=== PATIENT | female | born 2000 | race Caucasian/White ===

== ENCOUNTER → 2021-04-09 | Outpatient (CLI) | payer MEDICAID ==
--- NOTE | 2021-04-09 15:58 | Diagnostic Imaging Report ---
INDICATION: survey. TECHNIQUE: Multiple real-time grayscale images were obtained over the gravid uterus. COMPARISON: None. FINDINGS: There is a single live fetus in a cephalic presentation. heart rate was recorded 146 BPM. Placenta is posterior. No previa is identified. Amniotic fluid volume is normal. Cervical length is 3.3 cm. survey demonstrates bladder and stomach to be unremarkable. There is a four-chamber heart. There is a three-vessel cord with normal insertion. spine is unremarkable. There are suboptimal images of the brain and kidneys due to position. Biometrical measurements are as follows: Biparietal 4.49 cm, age 19 weeks 5 days. Head circumference 17.03 cm, age 19 weeks 5 days. Abdominal circumference 14.32 cm, age 19 weeks 5 days. Femur length 3.13 cm, age 19 weeks 6 days. Sonographic estimate age: 19 weeks 6 days. Sonographic estimated date of delivery: 08/28/2021. Estimated Weight: 307 gm (+/- 45 gm). LMP percentile: 35%. heart rate: 146 beats per minute. number: 1 of 1. IMPRESSION: Single live IUP of approximately 20 weeks gestational age. Estimated date of confinement sonographically is 08/28/2021. survey is unremarkable, although there was suboptimal imaging of the brain and facial anatomy as well as kidneys due to lie. Follow-up could be performed. Dictated by: Dictated on workstation # [id number]
== END ==
LOC: RAD 14:30
PROVIDERS: ATTEND Nurse Practitioner Women's Health
DX: Z34.02 Encounter for supervision of normal first pregnancy, second trimester (principal); Z3A.00 Weeks of gestation of pregnancy not specified
CPT/HCPCS: 76805

== ENCOUNTER → 2021-07-25 | Outpatient (CLI) | payer MEDICAID | LOC: LABNPT 13:30 | PROVIDERS: ATTEND Nurse Practitioner Women's Health | DX: Z34.03 Encounter for supervision of normal first pregnancy, third trimester (principal) | CPT/HCPCS: 87081 ==

== ENCOUNTER → 2021-07-31 | Outpatient (CLI) | payer MEDICAID ==
[2021-07-31 17:57] LABS: BASOPHILS % (AUTO) 0 % (0-10); EOSINOPHILS % (AUTO) 0 % (0-10); HEMATOCRIT 34 % (35-52); LYMPHOCYTES # (AUTO) 1.7 10^3/uL (1.0-4.0); LYMPHOCYTES % (AUTO) 20 % (12-44); MEAN CORPUSCULAR HEMOGLOBIN 28 pg (25-34); MEAN CORPUSCULAR HGB CONC 32 g/dL (32-36); MEAN CORPUSCULAR VOLUME 88 fL (80-99); MEAN PLATELET VOLUME 10.2 fL (9.0-12.2); MONOCYTES # (AUTO) 0.8 10^3/uL (0.0-1.0); MONOCYTES % (AUTO) 9 % (0-12); NEUTROPHILS % (AUTO) 70 % (42-75); PLATELET COUNT 234 10^3/uL (130-400); WHITE BLOOD COUNT 8.6 10^3/uL (4.3-11.0)
[2021-07-31 18:06] LABS: ALBUMIN 3.4 GM/DL (3.2-4.5)
[2021-07-31 18:07] LABS: CALCIUM 9.4 MG/DL (8.5-10.1)
[2021-07-31 18:08] LABS: TOTAL PROTEIN 6.4 GM/DL (6.4-8.2)
[2021-07-31 18:10] LABS: BILIRUBIN,TOTAL 0.2 MG/DL (0.1-1.0)
[2021-07-31 18:12] LABS: CREATININE SERUM 0.59 MG/DL (0.60-1.30)
== END ==
LOC: LABNPT 17:35
PROVIDERS: ATTEND Obstetrics & Gynecology
DX: O13.9 Gestational [pregnancy-induced] hypertension without significant proteinuria, unspecified trimester (principal); Z3A.00 Weeks of gestation of pregnancy not specified
CPT/HCPCS: 80053; 82570; 84156; 84550; 85025

== ENCOUNTER 2021-08-13 10:31 | Inpatient (IN) | payer MEDICAID ==
[2021-08-13] VITALS (41 sets, daily range): BP systolic 110–148; BP diastolic 59–91
[~2021-08-13] VITALS: Ht 152.4 cm; Wt 11.6 kg
[2021-08-13] MEDS ORDERED: MINERAL OIL 30 ML TOP PRN (11:15)
[2021-08-13] MEDS ORDERED: D5 LR IV SOLUTION 1,000 ML IV ONE (11:20)
[2021-08-13] MEDS: D5 LR IV SOLUTION 1,000 ML IV SCH ×2 (11:46→18:52)
[2021-08-13 12:07] LABS: BASOPHILS % (AUTO) 0 % (0-10); EOSINOPHILS % (AUTO) 0 % (0-10); HEMATOCRIT 33 % (35-52); HEMOGLOBIN 10.9 g/dL (11.5-16.0); LYMPHOCYTES # (AUTO) 1.6 10^3/uL (1.0-4.0); LYMPHOCYTES % (AUTO) 20 % (12-44); MEAN CORPUSCULAR HEMOGLOBIN 29 pg (25-34); MEAN CORPUSCULAR HGB CONC 33 g/dL (32-36); MEAN CORPUSCULAR VOLUME 86 fL (80-99); MONOCYTES % (AUTO) 6 % (0-12); NEUTROPHILS # (AUTO) 5.9 10^3/uL (1.8-7.8); NEUTROPHILS % (AUTO) 73 % (42-75); PLATELET COUNT 206 10^3/uL (130-400); WHITE BLOOD COUNT 8.1 10^3/uL (4.3-11.0)
[2021-08-13 12:08] LABS: MONOCYTES # (AUTO) 0.5 10^3/uL (0.0-1.0)
[2021-08-13 13:17] LABS: BILIRUBIN,URINE NEGATIVE (NEGATIVE); CLARITY,URINE SL CLOUDY; COLOR,URINE YELLOW; GLUCOSE, URINE (UA) NEGATIVE (NEGATIVE); KETONES,URINE NEGATIVE (NEGATIVE); LEUKOCYTE ESTERASE ,URINE NEGATIVE (NEGATIVE); NITRITE,URINE NEGATIVE (NEGATIVE); PH,URINE 6.5 (5-9); PROTEIN,URINE TRACE (NEGATIVE)
[2021-08-13 13:28] LABS: BACTERIA,URINE NEGATIVE /HPF; RBC,URINE >100 /HPF; SQUAMOUS EPITHELIAL CELL,UR RARE /HPF; WBC,URINE RARE /HPF
[2021-08-13] MEDS ORDERED: CATHETER FLUSH 10 ML SYR IV SCH (14:00)
[2021-08-13] MEDS ORDERED: OXYTOCIN PRE-MIX DRIP 500 ML IV ONE (15:54)
--- NOTE | 2021-08-13 15:57 | History & Physical-OB ---
OB - Chief Complaint & HPI Date/Time Date of Admission: Date of Admission: August 13, 2021 at 10:32 Date seen by a Provider: August 13, 2021 Time Seen by a Provider: 09:30 Chief Complaint/History OB-Reason for Admission/Chief: Onset of Labor Hx : 1 Hx Para: 0 Gestational Age in Weeks: 37 Gestational Age in Days: 6 Admission Nurse Assessment Rev: Yes Allergies and Home Medications Allergies Coded Allergies: No Known Drug Allergies (Unverified , 08/13/21) Patient Home Medication List Home Medication List Reviewed: Yes OB - History Hx of Present Care: Yes Ultrasounds: Normal mid trimester US Obstetrical Complications: None Medical Complications: None Patient Past Medical History NC Immunizations Influenza Vaccine Up-to-Date: No; Not Current OB - Admission Exam Physical Exam Vitals: Vital Signs 08/13/21 15:00 Temp 36.5 Pulse 88 Resp 18 B/P (MAP) 130/77 (94) Pulse Ox 98 O2 Delivery Room Air HEENT: NCAT Heart: Rhythm Normal Lungs: Clear Abdomen: Gravid Extremities: Normal Reflexes: Normal Cervical Dilatation: 2cm Effacement: 75% Station: -1 Membranes: Ruptured Amniotic Fluid: Other (bloody) Heart Rate: 130's Accelerations: Accelerations Present Decelerations: No Decelerations Short Term Variability: Present Retirement Variability: Average (6-25) Contractions on Admission: 6-10 Minutes Apart Intensity: Mild Labs Laboratory Tests Test 08/13/21 11:33 08/13/21 13:00 Range/Units White Blood Count 8.1 4.3-11.0 10^3/uL Red Blood Count 3.83 3.80-5.11 10^6/uL Hemoglobin 10.9 L 11.5-16.0 g/dL Hematocrit 33 L 35-52 % Mean Corpuscular Volume 86 80-99 fL Mean Corpuscular Hemoglobin 29 25-34 pg Mean Corpuscular Hemoglobin Concent 33 32-36 g/dL Red Cell Distribution Width 13.3 10.0-14.5 % Platelet Count 206 130-400 10^3/uL Mean Platelet Volume 11.0 9.0-12.2 fL Immature Granulocyte % (Auto) 1 % Neutrophils (%) (Auto) 73 42-75 % Lymphocytes (%) (Auto) 20 12-44 % Monocytes (%) (Auto) 6 0-12 % Eosinophils (%) (Auto) 0 0-10 % Basophils (%) (Auto) 0 0-10 % Neutrophils # (Auto) 5.9 1.8-7.8 10^3/uL Lymphocytes # (Auto) 1.6 1.0-4.0 10^3/uL Monocytes # (Auto) 0.5 0.0-1.0 10^3/uL Eosinophils # (Auto) 0.0 0.0-0.3 10^3/uL Basophils # (Auto) 0.0 0.0-0.1 10^3/uL Immature Granulocyte # (Auto) 0.1 0.0-0.1 10^3/uL Urine Color YELLOW Urine Clarity SL CLOUDY Urine pH 6.5 5-9 Urine Specific [place] 1.010 L 1.016-1.022 Urine Protein TRACE H NEGATIVE Urine Glucose (UA) NEGATIVE NEGATIVE Urine Ketones NEGATIVE NEGATIVE Urine Nitrite NEGATIVE NEGATIVE Urine Bilirubin NEGATIVE NEGATIVE Urine Urobilinogen 0.2 < = 1.0 MG/DL Urine Leukocyte Esterase NEGATIVE NEGATIVE Urine RBC (Auto) 3+ H NEGATIVE Urine RBC >100 H /HPF Urine WBC RARE /HPF Urine Squamous Epithelial Cells RARE /HPF Urine Crystals NONE /LPF Urine Bacteria NEGATIVE /HPF Urine Casts NONE /LPF Urine Mucus NEGATIVE /LPF Urine Culture Indicated NO OB - Assessment/Plan/Diagnosis Assessment Assessment: active labor, rupture of membranes Admission Dx 20 yo @ 37 weeks SROM- blood tinged GBS neg Admission Status: Inpatient Order (span 2 midnights) Reason for Inpatient Admission: SROM at 37 weeks Plan Plan: Expectant Management Other Plan Attempted expectant management, dysfunctional contraction pattern noted with no change in patient comfort status. Explained reasoning for pitocin augmentation and wished to start at 1100 AM, patient refused at that time but has now agreed at 1600 that we may augment her with pitocin. ANA WELLINGTON DO August 13, 2021 15:57
[2021-08-13] MEDS ORDERED: OXYTOCIN PRE-MIX DRIP 500 ML IV SCH (16:00)
[2021-08-14] VITALS (46 sets, daily range): BP systolic 103–183; BP diastolic 56–89
[2021-08-14] MEDS ORDERED: CALCIUM CARBONATE 500 MG (TUMS) TAB.CHEW PO ONE (02:45)
[2021-08-14] MEDS ORDERED: CALCIUM CARBONATE 500 MG (TUMS) TAB.CHEW ONE (02:50)
[2021-08-14] MEDS: D5 LR IV SOLUTION 1,000 ML IV SCH ×2 (02:52→10:07)
[2021-08-14] MEDS ORDERED: fentaNYL 2 mcg/ml BUPIVA 0.125 100 ML ONE (04:56)
[2021-08-14] MEDS ORDERED: fentaNYL INJ 100 MCG/2 ML AMP ONE (05:17)
[2021-08-14] MEDS ORDERED: ONDANSETRON 4 MG/2 ML (SDV) Z0FRAN IV PRN (05:45)
[2021-08-14] MEDS ORDERED: diphenhydrAMINE 50 MG/ML INJ (BENADRYL) IV PRN (05:45)
[2021-08-14] MEDS ORDERED: NALOXONE 0.4 MG/ML 1 ML (NARCAN) VIAL IV PRN ×3 (05:45→12:30)
[2021-08-14] MEDS ORDERED: METOCLOPRAMIDE INJ 10 MG/2 ML (REGLAN) IV PRN (05:45)
[2021-08-14] MEDS ORDERED: EPIDURAL (fentaNYL 2 MCG/ML BUPIVA 0.125%)100 ML BAG EPI PRN (05:45)
[2021-08-14] MEDS ORDERED: LACTATED RINGERS 1,000 ML IV SCH (05:45)
[2021-08-14] MEDS ORDERED: LIDOCAINE/EPI 2% 1:200,00 (XYLOCAINE) 10 ML VIAL ONE (11:15)
[2021-08-14] MEDS ORDERED: METHYLERGONOVINE 0.2 MG/ML (METHERGINE) AMP ONE ×2 (11:50)
--- NOTE | 2021-08-14 12:26 | OB Labor & Delivery Record ---
L&D History Date of Service Date of Service: August 14, 2021 History Gestational Age in Weeks: 37 Hx : 1 Hx Para: 0 Complications Events: Routine care Operative Indications (Cesarea: N/A-Vaginal Delivery Intrapartal Events: None (vaginal bleeding at presentation and SROM) L&D Stage1 Stage One Onset of Labor - Date: August 14, 2021 Monitors and Tracing Monitor Mode: External Heart Rate: 125 Monitor Accelerations: Uniform Monitor Decelerations: None Station: 0 Jail Variability: Average (6-10) Short Term Variability: Present Presentation: Vertex Vital Signs VS - Last 72 Hours, by Label 08/13/21 08/13/21 08/13/21 08/13/21 10:30 10:40 11:00 11:30 Temp 37.1 37.2 Pulse 96 85 111 103 Resp 18 18 18 18 B/P (MAP) 141/91 (108) 144/78 (100) 144/78 (100) 135/84 (101) Pulse Ox 98 99 O2 Delivery Room Air Room Air Room Air Room Air 08/13/21 08/13/21 08/13/21 08/13/21 11:33 12:00 12:30 13:00 Temp 37.2 Pulse 103 92 92 Resp 18 18 18 18 B/P (MAP) 135/74 (94) 135/74 (94) 135/90 (105) Pulse Ox 99 O2 Delivery Room Air Room Air Room Air Room Air 08/13/21 08/13/21 08/13/21 08/13/21 13:30 14:00 14:30 15:00 Temp 37.0 36.5 Pulse 88 86 85 88 Resp 18 18 18 18 B/P (MAP) 120/76 (91) 116/75 (89) 127/75 (92) 130/77 (94) Pulse Ox 98 O2 Delivery Room Air Room Air Room Air Room Air 08/13/21 08/13/21 08/13/21 08/13/21 15:30 16:00 16:15 16:30 Temp 36.6 Pulse 88 83 88 84 Resp 18 18 18 18 B/P (MAP) 130/77 (94) 134/85 (101) 133/88 (103) 123/82 (96) Pulse Ox 98 O2 Delivery Room Air Room Air Room Air Room Air 08/13/21 08/13/21 08/13/21 08/13/21 16:45 17:00 17:15 17:30 Temp 36.9 Pulse 93 85 82 88 Resp 18 18 18 18 B/P (MAP) 125/83 (97) 124/83 (97) 127/85 (99) 128/74 (92) O2 Delivery Room Air Room Air Room Air Room Air 08/13/21 08/13/21 08/13/21 08/13/21 17:45 18:00 18:15 18:30 Temp 36.9 Pulse 73 82 87 81 Resp 18 18 18 18 B/P (MAP) 128/78 (95) 136/85 (102) 134/79 (97) 128/73 (91) Pulse Ox 100 O2 Delivery Room Air Room Air Room Air Room Air 08/13/21 08/13/21 08/13/21 08/13/21 18:45 19:00 19:13 19:29 Temp 37.2 Pulse 81 83 85 86 Resp 18 18 18 B/P (MAP) 128/73 (91) 134/80 (98) 129/79 (96) 120/78 (92) O2 Delivery Room Air Room Air 08/13/21 08/13/21 08/13/21 08/13/21 19:43 19:58 20:30 20:43 Temp 36.8 Pulse 78 80 84 83 Resp 18 18 18 18 B/P (MAP) 129/76 (93) 122/73 (89) 110/68 (82) 125/76 (92) 08/13/21 08/13/21 08/13/21 08/13/21 20:58 21:15 21:28 21:45 Pulse 81 86 78 70 Resp 18 18 18 18 B/P (MAP) 117/67 (84) 129/69 (89) 139/87 (104) 132/82 (99) 08/13/21 08/13/21 08/13/21 08/13/21 22:04 22:18 22:28 22:43 Pulse 82 78 78 82 Resp 18 18 18 18 B/P (MAP) 148/89 (108) 125/59 (81) 131/65 (87) 124/62 (82) 08/13/21 08/14/21 08/14/21 08/14/21 23:45 00:14 00:43 01:13 Temp 36.7 Pulse 80 77 68 80 Resp 18 18 18 18 B/P (MAP) 137/76 (96) 124/67 (86) 134/79 (97) 124/86 (99) 08/14/21 08/14/21 08/14/21 08/14/21 01:58 02:14 02:45 03:00 Temp 37.2 Pulse 106 104 97 Resp 18 18 18 B/P (MAP) 136/89 (105) 137/69 (91) 126/67 (86) 08/14/21 08/14/21 08/14/21 08/14/21 03:28 03:58 04:14 05:00 Pulse 97 99 106 126 Resp 18 18 18 18 B/P (MAP) 145/70 (95) 141/68 (92) 140/67 (91) 125/77 (93) 08/14/21 08/14/21 08/14/21 08/14/21 05:08 05:12 05:15 05:20 Pulse 117 105 110 114 Resp 18 18 18 18 B/P (MAP) 124/67 (86) 139/76 (97) 139/77 (97) 135/76 (95) 08/14/21 08/14/21 08/14/21 08/14/21 05:25 05:31 05:36 06:00 Pulse 100 105 99 85 Resp 18 18 18 18 B/P (MAP) 134/68 (90) 133/69 (90) 139/72 (94) 126/62 (83) Pulse Ox 96 08/14/21 08/14/21 08/14/21 08/14/21 06:15 06:28 06:45 06:55 Pulse 87 83 98 86 Resp 18 18 18 18 B/P (MAP) 119/59 (79) 113/56 (75) 115/57 (76) 112/56 (74) Pulse Ox 97 95 96 96 08/14/21 08/14/21 08/14/21 08/14/21 07:00 07:10 07:25 07:40 Temp 36.8 36.3 Pulse 83 82 95 Resp 18 18 18 B/P (MAP) 112/58 (76) 103/59 (74) 113/64 (80) Pulse Ox 96 96 99 08/14/21 08/14/21 08/14/21 08/14/21 07:55 08:10 08:25 08:55 Pulse 82 114 108 86 Resp 18 18 18 18 B/P (MAP) 112/64 (80) 124/67 (86) 129/71 (90) 155/58 (90) Pulse Ox 100 08/14/21 08/14/21 08/14/21 08/14/21 09:05 09:25 09:40 10:10 Temp 36.4 Pulse 92 98 88 Resp 18 18 18 B/P (MAP) 129/78 (95) 129/85 (100) 123/71 (88) 08/14/21 08/14/21 08/14/21 10:25 10:40 10:55 Pulse 96 93 85 Resp 18 18 18 B/P (MAP) 120/70 (87) 126/71 (89) 120/67 (84) Rupture of Membranes Spontaneous Ruture of Membrane: Yes Amniotic Membrane Rupture Time: 929 Amniotic Membrane Fluid Desc.: Bloody Vaginal Bleeding Description: Normal Show Induction/Anesthesia Epidural Cath Placement - Time: 0512 Progress/Notes Patient was augmented with pitocin and progressed with an epidural to complete and +2 station. L&D Stage2 Stage Two Stage II Date: August 14, 2021 Monitors and Tracing Monitor Mode: External Heart Rate: 125 Position: Right Occiput Anterior Presentation: Vertex Cord Descript/Complications Cord Vessel Description: 3 Vessels Delivery Type Delivery Method: Spontaneous Vaginal Anterior Shoulder: Left Episiotomy/Perineal Laceration Laceraction(s)/Extensions: Yes Episiotomy Description: Midline, Vaginal Extension/lac, 2nd degree Degree (describe repair) midline vaginal/perineal laceration repaired using 3-0 rapide in usual fashion. Condition of Infant Delivery 1 minute Comment: 8 5 minute Comment: 9 Notes live female weight pending Condition of Infant Condition of Infant: Living Exam: No Observed Abnormalities Resuscitation Resuscitation: N/A - Spontaneous Resp L&D Stage3 Stage Three Stage III Date: August 14, 2021 Pictocin Pitocin Administration mu/min: 14 Pitocin ml/hr: 14 Pitocin Administration Comment: 30 mu wide open after delivery of placenta Placenta Delivery Placenta Delivery: Spontaneous Delivery Summary Summary Estimated blood loss (mL): 450 Attending at delivery: Ana Wellington DO Condition of Delivery Examined: Cervix Examined, Uterus Explored Post Hemorrhage: No Intervention Required gave methergine 0.2 mg IM with resolution and improvement of heavy bleeding Condition of Mother stable Condition of Infant (s) stable ANA WELLINGTON DO August 14, 2021 12:26
[2021-08-14] MEDS ORDERED: HYDROcodone/APAP 5 MG/325 MG (LORTAB) TAB PO PRN (12:30)
[2021-08-14] MEDS ORDERED: DIBUCAINE 1% OINTMENT 30 GM TUBE TOP PRN (12:30)
[2021-08-14] MEDS ORDERED: BENZOCAINE/MENTHOL (DERMOPLAST) 56 ML CAN TP PRN (12:30)
[2021-08-14] MEDS ORDERED: TETANUS,DIPTH,PERTUSS P/F (BOOSTRIX) 0.5 ML VIAL IM ONE (12:30)
[2021-08-14] MEDS ORDERED: MEASLES,MUMPS,RUBELLA 1 EA INJ SQ ONE (12:30)
[2021-08-14] MEDS ORDERED: WITCH HAZEL(TUCKS) 40 EA JAR TOP PRN (12:30)
[2021-08-14] MEDS ORDERED: OXYTOCIN PRE-MIX DRIP 500 ML IV SCH (12:30)
[2021-08-14] MEDS ORDERED: CATHETER FLUSH 10 ML SYR IV SCH (14:00)
[2021-08-14] MEDS: IBUPROFEN 600 MG (MOTRIN) TAB PO SCH ×2 (14:03→19:59)
[2021-08-14] MEDS: DOCUSATE SODIUM 100 MG (COLACE) CAP PO SCH (19:58)
[2021-08-15 00:14] VITALS: BP 115/87
[2021-08-15] MEDS: IBUPROFEN 600 MG (MOTRIN) TAB PO SCH ×3 (02:08→14:03)
[2021-08-15 04:30] VITALS: BP 112/68
[2021-08-15 06:20] LABS: BASOPHILS % (AUTO) 0 % (0-10); EOSINOPHILS % (AUTO) 1 % (0-10); HEMATOCRIT 25 % (35-52); HEMOGLOBIN 8.2 g/dL (11.5-16.0); LYMPHOCYTES # (AUTO) 1.7 10^3/uL (1.0-4.0); LYMPHOCYTES % (AUTO) 20 % (12-44); MEAN CORPUSCULAR HEMOGLOBIN 28 pg (25-34); MEAN CORPUSCULAR HGB CONC 32 g/dL (32-36); MEAN CORPUSCULAR VOLUME 87 fL (80-99); MEAN PLATELET VOLUME 10.5 fL (9.0-12.2); MONOCYTES # (AUTO) 0.6 10^3/uL (0.0-1.0); MONOCYTES % (AUTO) 7 % (0-12); NEUTROPHILS # (AUTO) 5.8 10^3/uL (1.8-7.8); NEUTROPHILS % (AUTO) 71 % (42-75); PLATELET COUNT 168 10^3/uL (130-400); WHITE BLOOD COUNT 8.1 10^3/uL (4.3-11.0)
[2021-08-15] MEDS ORDERED: PRENATAL VITAMIN 1 EA TAB PO SCH (07:00)
[2021-08-15 08:00] VITALS: BP 121/63
[2021-08-15] MEDS: DOCUSATE SODIUM 100 MG (COLACE) CAP PO SCH (08:13)
--- NOTE | 2021-08-15 09:55 | Postpartum Progress Note ---
Note Note Day # 1 Subjective: Patient is without complaints. Ambulating, voiding. Tolerating a regular diet without nausea or vomiting. Normal lochia. Pain is well controlled with oral pain medications. Physical Exam: General - Alert and oriented, no apparent distress Abdomen - Soft, appropriately tender to palpation, non-distended, fundus firm at umbilicus Extremities - no edema, negative Kushal's bilaterally Assessment: Post- day # 1, status post vaginal delivery. Recovering well, hemodynamically stable Acute blood loss anemia Plan: Routine care. Encourage breast feeding. Encourage ambulation. Ferrous sulfate supplementation. Plan for discharge today Vitals - Labs Vital Signs - I&O Vital Signs Date Time Temp Pulse Resp B/P (MAP) Pulse Ox O2 Delivery O2 Flow Rate FiO2 08/15/21 04:30 36.5 77 16 112/68 (83) 97 Room Air 08/15/21 00:14 36.1 88 18 115/87 (96) 98 Room Air 08/14/21 20:01 36.6 107 17 130/64 (86) 98 Room Air 08/14/21 18:00 36.8 92 18 127/64 (85) 97 Room Air 08/14/21 13:54 37.0 88 18 139/78 (98) 08/14/21 13:39 96 18 137/78 (97) 08/14/21 13:24 107 18 120/82 (95) 08/14/21 13:09 102 18 127/86 (100) 08/14/21 12:54 18 127/77 (94) 08/14/21 12:39 93 18 128/59 (82) 08/14/21 12:24 102 18 183/56 (98) 08/14/21 12:09 106 18 132/85 (101) 08/14/21 11:55 102 18 120/60 (80) 08/14/21 10:55 85 18 120/67 (84) 08/14/21 10:40 93 18 126/71 (89) 08/14/21 10:25 96 18 120/70 (87) 08/14/21 10:10 88 18 123/71 (88) I & O 08/15/21 07:00 Intake Total 2300 ml Balance 2300 ml Labs Laboratory Tests 08/15/21 06:10: White Blood Count 8.1, Red Blood Count 2.91L, Hemoglobin 8.2#L, Hematocrit 25L, Mean Corpuscular Volume 87, Mean Corpuscular Hemoglobin 28, Mean Corpuscular Hemoglobin Concent 32, Red Cell Distribution Width 13.8, Platelet Count 168, Mean Platelet Volume 10.5, Immature Granulocyte % (Auto) 1, Neutrophils (%) (Auto) 71, Lymphocytes (%) (Auto) 20, Monocytes (%) (Auto) 7, Eosinophils (%) (Auto) 1, Basophils (%) (Auto) 0, Neutrophils # (Auto) 5.8, Lymphocytes # (Auto) 1.7, Monocytes # (Auto) 0.6, Eosinophils # (Auto) 0.0, Basophils # (Auto) 0.0, Immature Granulocyte # (Auto) 0.1 Microbiology 08/13/21 Urine Culture - Final, Complete >=3 Gram Positive Isolates SHABANA LEE HAND III CUTTER August 15, 2021 09:55
[2021-08-15] MEDS ORDERED: IBUP-844 PO (09:58)
[2021-08-15] MEDS ORDERED: BENZ78AE5 TP (09:58)
[2021-08-15] MEDS ORDERED: DIBU30OI TOP (09:58)
[2021-08-15] MEDS ORDERED: ACHD5005 PO (09:58)
[2021-08-15] MEDS ORDERED: DOCU100C37 PO (09:58)
[2021-08-15] MEDS ORDERED: WTCHGPD TOP (09:58)
--- NOTE | 2021-08-15 10:00 | Discharge Inst-Women's Service ---
Discharge Inst-Women's Serv Depart Medication/Instructions New, Converted or Re-Newed RX: Transmitted to Pharmacy Consults/Follow Up Additional Follow Up: Yes (6wk appt) Activity Activity: Activity as Tolerated Driving Instructions: No Driving for 1 Week NO SMOKING: NO SMOKING Nothing Inside Vagina: No Douching, No [place], No Tampons Diet Discharge Diet: No Restrictions Symptoms to Report to : Bleeding Excessive, Fever Over 101 Degrees F, Vaginal Bleeding Increase For Any Problems or Questions: Contact Your Physician Skin/Wound Care Bathing Instructions: SHABANA Cordoba APRN August 15, 2021 10:00
--- NOTE | 2021-08-15 11:19 | Anesthesia-Regional Post-Op ---
Regional Patient Condition Mental Status: Alert, Oriented x3 Circulation: Same as Pre-Op Headache: Absent Sensation: Full Recovery Motor Block: Absent Post Op Complications Complications None Follow Up Care/Instructions Patient Instructions None needed. Anesthesia/Patient Condition Patient is doing well, no complaints, stable vital signs, no apparent adverse anesthesia problems. No complications reported per nursing. ABEBA CHAVARRIA CRNA August 15, 2021 11:19
[2021-08-15 14:00] VITALS: BP 129/72
[2021-08-15 16:25] VITALS: BP 129/72
== END 2021-08-15 16:25 | disposition home or self-care (01) | DRG 806 ==
LOC: WSo 10:31 → LDRP 10:32
PROVIDERS: ADMIT Obstetrics & Gynecology; ATTEND Obstetrics & Gynecology
PROC: 10E0XZZ Delivery of Products of Conception, External Approach (ICD-10-PCS; principal; 2021-08-14)
PROC: 0KQM0ZZ Repair Perineum Muscle, Open Approach (ICD-10-PCS; 2021-08-14)
DX: O70.1 Second degree perineal laceration during delivery (principal); D62 Acute posthemorrhagic anemia; Z37.0 Single live birth; Z3A.37 37 weeks gestation of pregnancy; O90.81 Anemia of the puerperium
CPT/HCPCS: 36415; 81000; 85025; 86850; 86900; 86901; 87088; 99212

== ENCOUNTER 2021-08-30 20:11 | Emergency (ER) | payer MEDICAID ==
[~2021-08-30] VITALS: Ht 152 cm; Wt 70.4 kg
[~2021-08-30 20:11] MED LIST: ACHD5005 PO; BENZ78AE5 TP; DIBU30OI TOP; DOCU100C37 PO; IBUP-844 PO; WTCHGPD TOP
--- NOTE | 2021-08-30 20:15 | ED GU-Female ---
General Chief Complaint: - Reproductive Stated Complaint: DIZZINESS,HEADACHE,BURNING WHILE URINATING History of Present Illness Date Seen by Provider: August 30, 2021 Time Seen by Provider: 20:15 Initial Comments 20-year-old female that is 16 days presents with some dizziness, dysuria, headache. Patient feels that she has a urinary tract infection. Patient reports her symptoms started just shortly after her delivery of her baby. She does breast-feed. She reports that she was seen about a week ago had her urine checked but has never gotten results back. Patient also reports that she has a "bedsore" on her coccyx from not a lot of ambulation following her . Patient reports that she was discharged 2 days post vaginal delivery then she had to go back up to the hospital because her infant was having difficulties with jaundice and not gaining weight and spent a couple more days in the hospital. She reports that after she got home she spent quite a bit of time in her recliner and was not ambulating a lot. Patient denies any chest pain, fever, chills, shortness of breath, pelvic or abdominal pain. Patient rep orts she still has some mild post bleeding Allergies and Home Medications Allergies Coded Allergies: No Known Drug Allergies (Unverified , 08/13/21) Patient Home Medication List Home Medication List Reviewed: Yes Benzocaine/Menthol (Dermoplast Pain Relieving Idamay) 20 %-0.5 % Aerosol, 0 EA TP UD PRN for PAIN- SEE INSTRUCTIONS Prescribed by: SHABANA LEE on 08/15/21 0958 Dibucaine (Dibucaine) 1 % Oint, 0 GM TOP UD PRN for PAIN- SEE INSTRUCTIONS Prescribed by: SHABANA LEE on 08/15/21 0958 Docusate Sodium (Docusate Sodium) 100 Mg Capsule, 100 MG PO BID Prescribed by: SHABANA LEE on 08/15/21 0958 Hydrocodone Bit/Acetaminophen (HYDROcodone/APAP 5 MG/325 MG TAB) 1 Tab Tab, 1 EA PO Q4H PRN for PAIN-MODERATE (5-7) Prescribed by: SHABANA LEE on 08/15/21 0959 Ibuprofen (Ibu) 600 Mg Tablet, 600 MG PO Q6H Prescribed by: SHABANA LEE on 08/15/21 0958 Witch [place]/Glycerin (A.e.r Pads) 12.5 %-50 % Pad, 0 EA TOP UD PRN for PAIN- SEE INSTRUCTIONS Prescribed by: SHABANA LEE on 08/15/21 0958 Review of Systems Review of Systems Constitutional: No chills; dizziness; No fever Respiratory: No cough, No short of breath Cardiovascular: No chest pain, No palpitations Genitourinary: burning, dysuria, frequency Skin: see HPI Psychiatric/Neurological: No Symptoms Reported Endocrine: No Symptoms Reported Hematologic/Lymphatic: No Symptoms Reported Physical Exam Vital Signs Vital Signs - First Documented 08/30/21 20:24 Temp 38.1 Pulse 118 Resp 22 B/P (MAP) 134/77 Pulse Ox 98 O2 Delivery Room Air Capillary Refill : Height, Weight, BMI Height: '" Weight: lbs. oz. kg; 4.99 BMI Method: General Appearance: WD/WN, no apparent distress Neck: full range of motion, supple Cardiovascular: normal peripheral pulses, regular rate, rhythm, no edema Respiratory: lungs clear, normal breath sounds, no respiratory distress Gastrointestinal: non tender, soft, other (fundus firm, ) Extremities: normal range of motion, non-tender Neurologic/Psychiatric: no motor/sensory deficits, alert, normal mood/affect, oriented x 3 Skin: other (mild erythema coccyx, irratitation, no signs of infectio ) Focused Exam Lactate Level 08/30/21 20:55: Lactic Acid Level 1.46 Lactic Acid Level Laboratory Tests Test 08/30/21 20:55 Lactic Acid Level 1.46 MMOL/L (0.50-2.00) Progress/Results/Core Measures Suspected Sepsis SIRS Temperature: Pulse: Respiratory Rate: Laboratory Tests 08/30/21 20:55: White Blood Count 14.1H Blood Pressure / Mean: 08/30/21 20:55: Lactic Acid Level 1.46 Laboratory Tests 08/30/21 20:55: Creatinine 0.73, Platelet Count 350, Total Bilirubin 0.2 Results/Orders Lab Results Laboratory Tests Test 08/30/21 20:30 08/30/21 20:55 Range/Units Urine Color YELLOW Urine Clarity CLOUDY Urine pH 6.0 5-9 Urine Specific [place] 1.010 L 1.016-1.022 Urine Protein NEGATIVE NEGATIVE Urine Glucose (UA) NEGATIVE NEGATIVE Urine Ketones NEGATIVE NEGATIVE Urine Nitrite NEGATIVE NEGATIVE Urine Bilirubin NEGATIVE NEGATIVE Urine Urobilinogen 0.2 < = 1.0 MG/DL Urine Leukocyte Esterase 3+ H NEGATIVE Urine RBC (Auto) 2+ H NEGATIVE Urine RBC 25-50 H /HPF Urine WBC >100 H /HPF Urine Squamous Epithelial Cells 5-10 /HPF Urine Renal Epithelial Cells 2-5 /HPF Urine Crystals NONE /LPF Urine Bacteria LARGE H /HPF Urine Casts NONE /LPF Urine Mucus NEGATIVE /LPF Urine Culture Indicated YES White Blood Count 14.1 H 4.3-11.0 10^3/uL Red Blood Count 3.71 L 3.80-5.11 10^6/uL Hemoglobin 10.1 L 11.5-16.0 g/dL Hematocrit 31 L 35-52 % Mean Corpuscular Volume 85 80-99 fL Mean Corpuscular Hemoglobin 27 25-34 pg Mean Corpuscular Hemoglobin Concent 32 32-36 g/dL Red Cell Distribution Width 13.6 10.0-14.5 % Platelet Count 350 130-400 10^3/uL Mean Platelet Volume 9.0 9.0-12.2 fL Immature Granulocyte % (Auto) 1 % Neutrophils (%) (Auto) 84 H 42-75 % Lymphocytes (%) (Auto) 10 L 12-44 % Monocytes (%) (Auto) 5 0-12 % Eosinophils (%) (Auto) 0 0-10 % Basophils (%) (Auto) 0 0-10 % Neutrophils # (Auto) 11.9 H 1.8-7.8 10^3/uL Lymphocytes # (Auto) 1.4 1.0-4.0 10^3/uL Monocytes # (Auto) 0.8 0.0-1.0 10^3/uL Eosinophils # (Auto) 0.0 0.0-0.3 10^3/uL Basophils # (Auto) 0.0 0.0-0.1 10^3/uL Immature Granulocyte # (Auto) 0.1 0.0-0.1 10^3/uL Neutrophils % (Manual) 73 % Lymphocytes % (Manual) 9 % Monocytes % (Manual) 7 % Eosinophils % (Manual) 0 % Basophils % (Manual) 0 % Band Neutrophils 11 % Platelet Estimate NORMAL Microcytosis 1+ Macrocytosis 1+ Sodium Level 139 135-145 MMOL/L Potassium Level 3.6 3.6-5.0 MMOL/L Chloride Level 104 98-107 MMOL/L Carbon Dioxide Level 24 21-32 MMOL/L Anion Gap 11 5-14 MMOL/L Blood Urea Nitrogen 12 7-18 MG/DL Creatinine 0.73 0.60-1.30 MG/DL Estimat Glomerular Filtration Rate 121 BUN/Creatinine Ratio 16 Glucose Level 106 H 70-105 MG/DL Lactic Acid Level 1.46 0.50-2.00 MMOL/L Calcium Level 9.0 8.5-10.1 MG/DL Corrected Calcium 9.2 8.5-10.1 MG/DL Total Bilirubin 0.2 0.1-1.0 MG/DL Aspartate Amino Transf (AST/SGOT) 11 5-34 U/L Alanine Aminotransferase (ALT/SGPT) 10 0-55 U/L Alkaline Phosphatase 132 40-136 U/L Total Protein 7.2 6.4-8.2 GM/DL Albumin 3.7 3.2-4.5 GM/DL My Orders Orders - KIMBERLEE MCCORMICK DO Cbc With Automated Diff (08/30/21 20:20) Comprehensive Metabolic Panel (08/30/21 20:20) Ua Culture If Indicated (08/30/21 20:20) Lactated Ringers (Lr 1000 Ml Iv Solution (08/30/21 20:33) Ed Iv/Invasive Line Start (08/30/21 20:33) Lactic Acid Analyzer (08/30/21 20:45) Blood Culture (08/30/21 20:45) Urine Culture (08/30/21 20:30) Manual Differential (08/30/21 20:55) Ceftriaxone (Rocephin) (08/30/21 21:45) Vital Signs/I&O 08/30/21 20:24 Temp 38.1 Pulse 118 Resp 22 B/P (MAP) 134/77 Pulse Ox 98 O2 Delivery Room Air Capillary Refill : Progress Note : Progress Note Patient with urine consistent for significant urinary tract infection. She does have a slight elevation in her white count but this is likely in combination of urinary tract infection and a recent vaginal delivery. Patient is given 2 g Rocephin IV in the ER. She will be prescribed Keflex x 7 days. 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 Patient is stable and discharged Departure Impression Primary Impression: UTI (urinary tract infection) Disposition: 01 HOME, SELF-CARE Condition: Stable Departure-Patient Inst. Referrals: ANA WELLINGTON DO (PCP/Family) Primary Care Physician Patient Instructions: Urinary Tract Infection, Adult (DC) Add. Discharge Instructions: Please follow-up with your primary care provider or pedodontist in approximately 5 days for recheck of your urine All discharge instructions reviewed with patient and/or family. Voiced understanding. Scripts Cephalexin (Cephalexin) 500 Mg Tablet 500 MG PO QID for 7 Days, #28 TAB 0 Refills Prov: KIMBERLEE MCCORMICK DO 08/30/21 KIMBERLEE MCCORMICK DO August 30, 2021 20:15
[2021-08-30] MEDS ORDERED: LACTATED RINGERS 1,000 ML IV STA (20:33)
[2021-08-30 20:46] LABS: BILIRUBIN,URINE NEGATIVE (NEGATIVE); CLARITY,URINE CLOUDY; COLOR,URINE YELLOW; GLUCOSE, URINE (UA) NEGATIVE (NEGATIVE); KETONES,URINE NEGATIVE (NEGATIVE); LEUKOCYTE ESTERASE ,URINE 3+ (NEGATIVE); NITRITE,URINE NEGATIVE (NEGATIVE); PROTEIN,URINE NEGATIVE (NEGATIVE)
[2021-08-30 21:16] LABS: BASOPHILS % (AUTO) 0 % (0-10); EOSINOPHILS % (AUTO) 0 % (0-10); HEMATOCRIT 31 % (35-52); HEMOGLOBIN 10.1 g/dL (11.5-16.0); LYMPHOCYTES # (AUTO) 1.4 10^3/uL (1.0-4.0); LYMPHOCYTES % (AUTO) 10 % (12-44); MEAN CORPUSCULAR HEMOGLOBIN 27 pg (25-34); MEAN CORPUSCULAR HGB CONC 32 g/dL (32-36); MEAN CORPUSCULAR VOLUME 85 fL (80-99); MONOCYTES # (AUTO) 0.8 10^3/uL (0.0-1.0); MONOCYTES % (AUTO) 5 % (0-12); NEUTROPHILS # (AUTO) 11.9 10^3/uL (1.8-7.8); NEUTROPHILS % (AUTO) 84 % (42-75); PLATELET COUNT 350 10^3/uL (130-400); WHITE BLOOD COUNT 14.1 10^3/uL (4.3-11.0)
[2021-08-30 21:26] LABS: BACTERIA,URINE LARGE /HPF; RBC,URINE 25-50 /HPF; WBC,URINE >100 /HPF
[2021-08-30 21:30] LABS: ALBUMIN 3.7 GM/DL (3.2-4.5); BILIRUBIN,TOTAL 0.2 MG/DL (0.1-1.0); CREATININE SERUM 0.73 MG/DL (0.60-1.30); POTASSIUM 3.6 MMOL/L (3.6-5.0); TOTAL PROTEIN 7.2 GM/DL (6.4-8.2)
[2021-08-30 21:38] LABS: BAND NEUTROPHILS 11 %; BASOPHILS % (MANUAL) 0 %; EOSINOPHILS % (MANUAL) 0 %; LYMPHOCYTES % (MANUAL) 9 %; MICROCYTOSIS 1+; MONOCYTES % (MANUAL) 7 %; NEUTROPHILS % (MANUAL) 73 %; PLATELET ESTIMATE NORMAL
[2021-08-30] MEDS ORDERED: cefTRIAXone 2,000 MG in NS (IVPB) 50 ML IV ONE (21:45)
[2021-08-30] MEDS ORDERED: CEPH500T PO (21:46)
[2021-08-30 22:40] VITALS: BP 128/74
== END 2021-08-30 22:40 | disposition home or self-care (01) ==
LOC: EDUNIT# 20:11 → ER FS 20:12
DX: O86.20 Urinary tract infection following delivery, unspecified (principal); N39.0 Urinary tract infection, site not specified; O99.13 Other diseases of the blood and blood-forming organs and certain disorders involving the immune mechanism complicating the puerperium; D72.829 Elevated white blood cell count, unspecified
CPT/HCPCS: 36415; 80053; 81000; 83605; 85007; 85027; 87040; 87077; 87088; 87186

== ENCOUNTER 2022-01-14 06:34 | Outpatient (CLI) | payer MEDICAID ==
[~2022-01-14] VITALS: Ht 154.2 cm; Wt 67.1 kg
[~2022-01-14 06:34] MED LIST changes: +CEPH500T PO
[2022-01-16] MEDS ORDERED: BIRTH CONTROL (11:01)
[2022-01-17] MEDS ORDERED: ACHD5005 PO (12:21)
[2022-01-17] MEDS ORDERED: DOCU-143 PO (12:21)
== END 2022-01-16 11:24 | disposition home or self-care (01) ==
LOC: PREOP 06:34
PROVIDERS: ATTEND Surgery
DX: Z01.818 Encounter for other preprocedural examination (principal)

== ENCOUNTER 2022-01-17 10:29 | Day surgery (SDC) | payer MEDICAID ==
[2022-01-17] VITALS (11 sets, daily range): BP systolic 92–122; BP diastolic 48–76
[~2022-01-17] VITALS: Ht 152.4 cm; Wt 67.1 kg
[~2022-01-17 10:29] MED LIST changes: +BIRTH CONTROL
[2022-01-17] MEDS ORDERED: ROCURONIUM 10 MG/ML 5 ML SYRINGE IV ONE (10:46)
[2022-01-17] MEDS ORDERED: fentaNYL INJ 100 MCG/2 ML AMP ONE (10:46)
[2022-01-17] MEDS ORDERED: proPOfol 200 MG/20 ML (DIPRIVAN) VIAL IV ONE (10:46)
[2022-01-17] MEDS ORDERED: MIDAZOLAM 2 MG/2 ML (VERSED) VIAL ONE ×2 (10:46→10:48)
[2022-01-17] MEDS ORDERED: LIDOCAINE PF 2% 5 ML (XYLOCAINE) VIAL ONE (10:46)
[2022-01-17] MEDS ORDERED: BUP/EPI 0.5% 1:200,000 (MARCAINE) 10ML VIAL IJ ONE ×2 (10:52→12:13)
[2022-01-17] MEDS ORDERED: MIDAZOLAM 2 MG/2 ML (VERSED) VIAL IV ONE (11:00)
[2022-01-17] MEDS ORDERED: ceFAZolin INJECTION 2,000 MG ONE (11:10)
[2022-01-17] MEDS ORDERED: NS (IVPB) 50 ML ONE (11:11)
[2022-01-17] MEDS ORDERED: ceFAZolin INJECTION 2,000 MG in NS (IVPB) 50 ML IV ONE (11:30)
[2022-01-17] MEDS ORDERED: LACTATED RINGERS 1,000 ML IV PRN (11:30)
[2022-01-17] MEDS ORDERED: ACHD5005 PO (12:21)
[2022-01-17] MEDS ORDERED: DOCU-143 PO (12:21)
--- NOTE | 2022-01-17 12:22 | Discharge Inst-Simple/Standard ---
Discharge Inst-Standard Discharge Medications New, Converted or Re-Newed RX: Transmitted to Pharmacy Patient Instructions/Follow Up Plan of Care/Instructions/FU: 2 weeks [place] Activity as Tolerated: No Discharge Diet: Regular Diet Other Inst to Patient Follow up Appt: Make appointment for 2 week. Instructions: No lifting greater than 10 pounds. No strenuous activity. May shower in 24 hours, no tub bath or soaking. Use incentive spirometer at home as directed. No Smoking Skin/Wound Care: You have sutures in place, keep area clean and dry. Symptoms to Report: Appetite Changes, Extremity Discoloration, Numbness/Tingling, Swelling Increased, Bleeding Excessive, Eyesight Changes, Pain Increased, Urine Color Change, Constipation(Persistent), Fever over 101 degree F, Pain/Pressure in chest, Urinating Difficulty, Cough Up/Vomit Blood, Heart Beat Irreg/Pounding, Pain/Pressure in jaw, Vaginal Bleeding Increase, Cramps in feet or legs, Lightheadedness, Pain/Pressure in shoulder, Diarrhea(Persistent), Memory Changes Suddenly, Questions/Concerns, Weight gain consecutive days, Dizziness/Fainting, Nausea/Vomiting, Shortness of Breath, Weight gain over 2 pounds If questions or concerns contact your physician Or seek help at emergency department. YOLY MADRIGAL DO Jan 17, 2022 12:22
[2022-01-17] MEDS ORDERED: NEOSTIGMINE 3 MG/3 ML VIAL ONE (12:27)
[2022-01-17] MEDS ORDERED: GLYCOPYRROLATE 0.2 MG/ML (ROBINUL) 2 ML VIAL ONE (12:27)
--- NOTE | 2022-01-17 12:39 | Anesthesia-General Post-Op ---
General Patient Condition Mental Status/LOC: Same as Preop Cardiovascular: Satisfactory Nausea/Vomiting: Absent Respiratory: Satisfactory Pain: Controlled Complications: Absent Post Op Complications Complications None Follow Up Care/Instructions Patient Instructions None needed. Anesthesia/Patient Condition Patient Condition Patient is doing well, no complaints, stable vital signs, no apparent adverse anesthesia problems. No complications reported per nursing. JOSE RALPH CRNA Jan 17, 2022 12:39
[2022-01-17] MEDS ORDERED: morphine INJ 10 MG/ML 1ML (SYR OR VIAL) ONE (12:44)
[2022-01-17] MEDS ORDERED: MEPERIDINE (DEMEROL) INJ 50 MG/ML IVP ONE (12:45)
[2022-01-17] MEDS ORDERED: morphine INJ 10 MG/ML 1ML (SYR OR VIAL) IVP ONE (12:45)
[2022-01-17] MEDS ORDERED: fentaNYL INJ 100 MCG/2 ML AMP IVP ONE (12:45)
[2022-01-17] MEDS ORDERED: ONDANSETRON 4 MG/2 ML (SDV) Z0FRAN IVP PRN (12:45)
--- NOTE | 2022-01-18 00:04 | OPERATIVE REPORT ---
DATE OF SERVICE: 01/17/2022 PREOPERATIVE DIAGNOSIS: Pilonidal cyst. POSTOPERATIVE DIAGNOSIS: Pilonidal cyst. PROCEDURE: Excision of pilonidal cyst 5.5 x 3 x 3 cm. SURGEON: Yoly Braxton DO. ANESTHESIA: General. ESTIMATED BLOOD LOSS: Minimal. COMPLICATIONS: None. INDICATIONS: The patient is a 21-year-old female who has had recurrent pilonidal cyst needing incision and drainage and wishes to have excised. She understands risks and benefits of procedure and wished to proceed. Consent was signed in the chart. DESCRIPTION OF PROCEDURE: The patient was taken to the operating suite, placed in prone position. Timeout was performed. Local anesthetic was infiltrated. A 15-blade scalpel was used to make an incision measuring 5.5 x 3 cm. Skin and subcutaneous tissue were removed with cautery down to the sacral fascia, which was excised measuring overall dimensions measuring 5.5 x 3 x 3 cm. Hemostasis was achieved. The wound was irrigated with copious amounts of irrigation and suction. The skin was then closed using 0 Prolene in a vertical mattress in simple interrupted fashion. The patient tolerated procedure well without any complications, taken to recovery room in stable condition. Job ID: [id number] DocumentID: [id number] Dictated Date: 01/17/2022 12:24:41 Entry Level Receptionist Date: 01/18/2022 00:03:51 Dictated By: YOLY BRAXTON DO
== END 2022-01-17 14:30 | disposition home or self-care (01) ==
LOC: SDC 10:29
PROVIDERS: ATTEND Surgery
DX: L05.91 Pilonidal cyst without abscess (principal); Z28.310 Unvaccinated for COVID-19
CPT/HCPCS: 84703; 87081

== ENCOUNTER → 2022-02-15 | Outpatient (CLI) | payer MEDICAID ==
[~2022-02-15] MED LIST changes: +DOCU-143 PO
== END ==
LOC: CARD 10:00
PROVIDERS: ATTEND Nurse Practitioner Family
DX: Z82.49 Family history of ischemic heart disease and other diseases of the circulatory system (principal)
CPT/HCPCS: 93306